=== PATIENT | male | born 1930 | race Caucasian/White ===

== ENCOUNTER → 2016-06-22 | Outpatient (CLI) | payer OTHER ==
[~2016-06-22] MED LIST: ASPIR 8181 M1 PO; COLACE100 MG PO; FINASTERIDE5 MG PO; LISINOPRIL20 MG PO; LOPRESSOR25 PO; NEPHROCAPS SOFT1 CAP PO; NITROGLYCERIN0.4 MG SUBLING; TUMS PO; VITAMIN D2000 UNIT PO
[2016-06-22 08:14] LABS: HEMATOCRIT 36.7 % (42.0-52.0); MCH 27.2 pg (26.0-34.0); MCHC 32.6 % (28.0-37.0); MCV 83.4 fL (80.0-100.0); RBC 4.41 mil/uL (4.50-6.00); RDW 19.7 % (10.5-14.5); WBC 3.5 thou/uL (4.0-11.0)
[2016-06-22 08:28] LABS: CALCIUM 8.2 mg/dL (8.5-10.1); CREATININE 2.1 mg/dL (0.6-1.3); POTASSIUM 4.1 mmol/L (3.5-5.1)
[2016-06-22 08:29] LABS: APTT 26.6 Seconds (24.5-32.8); INR 1.1; PROTIME 11.6 Seconds (9.3-11.4)
[2016-06-22 09:06] VITALS: BP 122/56
[2016-06-22 11:20] VITALS: BP 122/72
== END | disposition home or self-care (01) ==
LOC: SPEC 06-18 14:36
PROVIDERS: Radiology Vascular & Interventional Radiology
DX: I87.1 Compression of vein (principal); Z99.2 Dependence on renal dialysis